=== PATIENT | female | born 1945 | race Caucasian/White ===

== ENCOUNTER 2016-05-29 09:58 | Outpatient (CLI) | payer MEDICARE, BC ==
[2016-05-30] MEDS ORDERED: IOPAMIDOL-300 50 ML VIAL PO ONE (10:58)
== END 2016-05-29 09:59 | disposition home or self-care (01) ==
DX: R10.9 Unspecified abdominal pain (principal); Z85.42 Personal history of malignant neoplasm of other parts of uterus

== ENCOUNTER 2017-05-06 10:55 | Outpatient (CLI) | payer MEDICARE, BC ==
--- NOTE | 2017-05-07 11:44 | XRAY Report ---
DATE OF SERVICE: 05/06/2017 LEFT KNEE: 05/06/2017 COMPARISON: Left knee 08/26/2013. INDICATION: Osteoarthritis., TECHNIQUE: Three views of the left knee. FINDINGS: There are mild to moderate tricompartmental degenerative changes, slightly progressed compared to the prior exam. Normal alignment. No acute findings. There is a superior patellar enthesophyte , stable finding. IMPRESSION: MILD TO MODERATE TRICOMPARTMENTAL OSTEOARTHRITIS, SLIGHTLY PROGRESSED FROM THE PRIOR EXAM. TD: 05/06/2017 15:58 [facility] SYSTEMDarlene
== END 2017-05-06 10:56 | disposition home or self-care (01) ==
LOC: DI.S 10:55
PROVIDERS: ATTEND Physician Assistant
DX: M17.12 Unilateral primary osteoarthritis, left knee (principal)

== ENCOUNTER 2017-06-11 09:22 | Outpatient (CLI) | payer MEDICARE, BC ==
--- NOTE | 2017-06-11 14:07 | XRAY Report ---
TWO VIEW CHEST: 06/11/2017 CLINICAL INDICATION: Cough, fever. FINDINGS: Frontal and lateral views of the chest are compared to previous films of 04/09/2016. The cardiac silhouette is within normal limits. The lungs remain clear. No effusion or pneumothorax is present. IMPRESSION: NORMAL CHEST UNCHANGED. TD: 06/11/2017 14:04
== END 2017-06-11 09:23 | disposition home or self-care (01) ==
LOC: DI.S 09:22
PROVIDERS: ATTEND Physician Assistant
DX: R05 Cough (principal); R50.9 Fever, unspecified
CPT/HCPCS: 71046

== ENCOUNTER 2017-07-15 08:00 | Outpatient (CLI) | payer MEDICARE, BC ==
[2017-07-15 12:31] LABS: ABNORMAL LYMPHS % (MANUAL) 0 %; BAND NEUTROPHILS % (MANUAL) 0 %
[2017-07-15 17:36] LABS: BASOPHILS % (AUTO) 0.4 %; EOSINOPHILS % (AUTO) 4.4 %; HGB - HEMOGLOBIN 13.1 g/dL (12.0-16.0); LYMPHOCYTES % (AUTO) 32.4 %; MEAN CORPUSCULAR HEMOGLOBIN 28.2 pg (27.0-31.0); MEAN CORPUSCULAR HGB CONC 32.9 g/dL (32.0-36.0); MEAN CORPUSCULAR VOLUME 85.7 fL (81.0-99.0); MONOCYTES % (AUTO) 4.5 %; NEUTROPHILS % (AUTO) 58.3 %; PLT - PLATELET COUNT 268 10^3/uL (130-450); RED BLOOD COUNT 4.63 10^6/uL (4.20-5.40); WHITE BLOOD COUNT 5.9 x10^3/uL (4.8-10.8)
[2017-07-15 19:07] LABS: BASOPHILS # (MANUAL) 0.1 10^3/uL (0-0.1); BASOPHILS % (MANUAL) 1 %; EOSINOPHILS # (MANUAL) 0.6 10^3/uL (0-0.7); LYMPHOCYTES # (MANUAL) 1.8 10^3/uL (1.5-3.5); LYMPHOCYTES % (MANUAL) 31 %; MONOCYTES # (MANUAL) 0.3 10^3/uL (0.0-1.0); NEUTROPHILS # (MANUAL) 3.1 10^3/uL (1.5-6.6); NEUTROPHILS % (MANUAL) 52 %; PLATELET ESTIMATE, MANUAL NORMAL (130-450,000) (NORMAL); PLATELET MORPHOLOGY NORMAL APPEARANCE (NORMAL); RBC MORPHOLOGY (MULTIPLE) NORMAL APPEARANCE (NORMAL)
== END 2017-07-15 08:01 ==
LOC: LAB.F 08:00
PROVIDERS: ATTEND Physician Assistant
DX: D72.820 Lymphocytosis (symptomatic) (principal); R53.83 Other fatigue
CPT/HCPCS: 36415; 85025

== ENCOUNTER 2017-10-17 08:56 | Outpatient (CLI) | payer MEDICARE, BC ==
[~2017-10-17 08:56] MED LIST: IOPAMIDOL-300 100 ML VIAL ONE; IOPAMIDOL-300 50 ML VIAL ONE
[2017-10-17] MEDS ORDERED: IOPAMIDOL-300 50 ML VIAL PO ONE (10:53)
[2017-10-17] MEDS ORDERED: IOPAMIDOL-300 100 ML VIAL IVP ONE (10:53)
--- NOTE | 2017-10-19 08:40 | CT Report ---
Procedure Date: 10/17/2017 Accession Number: [id number] / [id number] Procedure: CT - Abdomen/Pelvis W/ CPT Code: FULL RESULT: EXAM: CT ABDOMEN AND PELVIS EXAM DATE: 10/17/2017 10:51 AM. CLINICAL HISTORY: WT LOSS, ABDOMINAL PAIN, HX ENDOMETRIAL CANCER. COMPARISONS: Abdominal pelvic CT 05/29/2016. TECHNIQUE: Routine helical CT imaging was performed through the abdomen and pelvis. IV contrast: 100 cc Isovue-300. Enteric contrast: Positive oral contrast. Reconstructions: Coronal and sagittal. In accordance with CT protocol optimization, one or more of the following dose reduction techniques were utilized for this exam: automated exposure control, adjustment of mA and/or KV based on patient size, or use of iterative reconstructive technique. FINDINGS: Lung Bases: Mild right lower lobe bronchial wall thickening. Small hiatal hernia. Liver: Diffuse fatty liver infiltration. No focal mass evident. Patent portal vein. Gallbladder/Bile Ducts: Gallstones. Partially contracted gallbladder. Spleen: Normal. Pancreas: Normal. Adrenal Glands: Normal. Kidneys: Normal. No masses or hydronephrosis. Peritoneal Cavity/Bowel: Diverticulosis. No focal inflammation or dilated bowel. The appendix is well visualized and normal. No adenopathy or omental implants evident. Pelvic Organs: Prior hysterectomy. Bladder is partially distended and grossly unremarkable. No adnexal mass evident. Vasculature: No aneurysms or other significant abnormality. Bones: Degenerative changes within the thoracolumbar spine. Convex left thoracal lumbar scoliosis. Other: No ascites. IMPRESSION: 1. Gallstones. No CT evidence for cholecystitis. Consider ultrasound if clinically warranted. 2. Fatty liver. 3. Small hiatal hernia. 4. Diverticulosis. No diverticulitis. 5. Prior hysterectomy. [facility]IA
== END 2017-10-17 08:57 | disposition home or self-care (01) ==
LOC: DI 08:56
PROVIDERS: ATTEND Physician Assistant
DX: K80.20 Calculus of gallbladder without cholecystitis without obstruction (principal); K76.0 Fatty (change of) liver, not elsewhere classified; K57.30 Diverticulosis of large intestine without perforation or abscess without bleeding; Z90.710 Acquired absence of both cervix and uterus
CPT/HCPCS: 74177; Q9967

== ENCOUNTER 2017-12-08 13:31 | Emergency (ER) | payer MEDICARE, BC ==
[2017-12-08 15:22] LABS: BASOPHILS # (AUTO) 0.1 10^3/uL (0.0-0.1); BASOPHILS % (AUTO) 1.7 %; EOSINOPHILS # (AUTO) 0.3 10^3/uL (0.0-0.7); EOSINOPHILS % (AUTO) 3.3 %; HGB - HEMOGLOBIN 12.6 g/dL (12.0-16.0); LYMPHOCYTES # (AUTO) 3.4 10^3/uL (1.5-3.5); LYMPHOCYTES % (AUTO) 42.2 %; MEAN CORPUSCULAR HEMOGLOBIN 28.6 pg (27.0-31.0); MEAN CORPUSCULAR HGB CONC 33.4 g/dL (32.0-36.0); MEAN CORPUSCULAR VOLUME 85.6 fL (81.0-99.0); MEAN PLATELET VOLUME 7.3 fL (7.9-10.8); MONOCYTES # (AUTO) 0.4 10^3/uL (0.0-1.0); MONOCYTES % (AUTO) 4.8 %; NEUTROPHILS # (AUTO) 3.9 10^3/uL (1.5-6.6); PLT - PLATELET COUNT 658 10^3/uL (130-450); RED BLOOD COUNT 4.41 10^6/uL (4.20-5.40); RED CELL DISTRIBUTION WIDTH 14.4 % (12.0-15.0); WHITE BLOOD COUNT 8.1 x10^3/uL (4.8-10.8)
[2017-12-08 15:35] LABS: ALBUMIN 3.9 g/dL (3.2-5.5); BILIRUBIN,TOTAL 0.6 mg/dL (0.2-1.0); CREATININE 0.9 mg/dL (0.4-1.0); TOTAL PROTEIN 7.7 g/dL (6.7-8.2)
--- NOTE | 2017-12-08 15:45 | ED Physician Documentation ---
PD HPI ABD PAIN - Stated complaint Stated Complaint: POST OP COMPLICATION - Chief complaint Chief Complaint: Abd Pain - History obtained from History obtained from: Patient - History of Present Illness Timing - onset: How many weeks ago (has had firm stools and less output since knee surgery 3 weeks ago. Taking pain meds regularly. Having more abd cramping today.) Timing - duration: Weeks Timing - details: Gradual onset, Waxing and waning Quality: Cramping, Aching, Fullness/distended Location: All over / everywhere Worsened by: Eating Associated symptoms: Constipation. No: Fever, Vomiting, Diarrhea, Melena Recently seen: Surgery (knee replacement 3 weeks ago) Review of Systems Constitutional: denies: Fever, Chills GI: reports: Abdominal Pain, Constipation. 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 HEENT: Cataracts, Tonsil/Adenoidectomy, Other - Present Medications Home Medications: Ambulatory Orders Medication Instructions Recorded Confirmed Esomeprazole Magnesium [Nexium] 40 mg PO DAILY 05/05/13 11/23/15 Cetirizine [ZyrTEC] 10 mg PO DAILY 10/03/15 11/23/15 Fluticasone/Salmeterol 250/50 1 puffs INH BID 10/03/15 11/23/15 [Advair 250 Mcg/50 Mcg] Cyclobenzaprine [Flexeril] 10 mg PO TID PRN 12/08/17 12/08/17 HYDROmorphone [Dilaudid] 2 mg PO Q4-6H 12/08/17 12/08/17 Naproxen 375 mg PO BID #20 tablet 12/08/17 Polyethylene Glycol 3350 [Miralax] 17 gm PO Q3H PRN #238 g 12/08/17 - Allergies Allergies/Adverse Reactions: Allergies Allergy/AdvReac Type Severity Reaction Status Date / Time No Known Drug Allergies Allergy Verified 12/08/17 13:46 - Social History Does the pt smoke?: No Smoking Status: Never smoker PD ED PE NORMAL - Vitals Vital signs reviewed: Yes - General General: Alert and oriented X 3, Well developed/nourished - HEENT HEENT: Pharynx benign - Neck Neck: Supple, no meningeal sign, No adenopathy - Cardiac Cardiac: RRR, No murmur - Respiratory Respiratory: Clear bilaterally - Abdomen Abdomen: Soft, Non distended, No organomegaly, Other (tender mid to lower abd without peritoneal signs. ). No: Normal bowel sounds (decreased) - Female Female : Deferred - Rectal Rectal: Other (no stool at vault. Guiac negative. ) - Back Back: No CVA TTP - Derm Derm: Normal color, Warm and dry - Extremities Extremities: Normal ROM s pain, No edema, Other (left knee with healing surgical scar, without signs of infection. ) - Neuro Neuro: Alert and oriented X 3, No motor deficit, Normal speech Results - Vitals Vitals: Oxygen O2 Source Room air - Labs Labs: Laboratory Tests 12/08/17 12/08/17 15:10 15:10 WBC 8.1 RBC 4.41 Hgb 12.6 Hct 37.8 MCV 85.6 MCH 28.6 MCHC 33.4 RDW 14.4 Plt Count 658 H MPV 7.3 L Neut # (Auto) 3.9 Lymph # (Auto) 3.4 [place] # (Auto) 0.4 Eos # (Auto) 0.3 Baso # (Auto) 0.1 Absolute Nucleated RBC 0.00 Nucleated RBC % 0.0 Sodium 139 Potassium 4.0 Chloride 106 Carbon Dioxide 23 Anion Gap 10.0 BUN 10 Creatinine 0.9 Estimated GFR (MDRD) 62 L Glucose 113 H Calcium 10.0 Total Bilirubin 0.6 AST 22 ALT 10 Alkaline Phosphatase 70 Total Protein 7.7 Albumin 3.9 Globulin 3.8 Albumin/Globulin Ratio 1.0 Lipase 45 - Rads (name of study) abd pelvic CT Radiology: Prelim report reviewed (no acute process. No obstruction. ) PD MEDICAL DECISION MAKING - ED course Complexity details: reviewed results (no acute process on CT abdomen. Presume symptoms are constipation. Only small stool with enema. Rectal without impaction. To continue treatments at home for the constipation. ), considered differential, d/w patient - Sepsis Event Vital Signs: Oxygen O2 Source Room air Departure - Departure Disposition: 01 Home, Self Care Clinical Impression: Abdominal pain Qualifiers: Abdominal location: lower abdomen, unspecified Qualified Code(s): R10.30 - Lower abdominal pain, unspecified Constipation Qualifiers: Constipation type: drug induced constipation Qualified Code(s): K59.03 - Drug induced constipation Condition: Stable Record reviewed to determine appropriate education?: Yes Instructions: ED Constipation Follow-Up: Carmen Wilson PA [Primary Care Provider] - Prescriptions: Naproxen 375 mg PO BID #20 tablet Polyethylene Glycol 3350 [Miralax] 17 gm PO Q3H PRN #238 g PRN Reason: Constipation Comments: Try to decrease the amount of pain medicine use. Add naproxen twice daily to try to help with the knee pain. Drink lots of fluids. Use the MiraLAX tomorrow every 2-3 hours until you are going more regularly. Then continue it at 2-3 times a day for the next several days. Continue stool softener such as senna or docusate. Recheck if not improving over the next day or 2. Your CT scan and blood tests are good without any signs of obstruction, diverticulitis, other significant causes. Discharge Date/Time: 12/08/17 20:57
[2017-12-08] MEDS ORDERED: MAGNESIUM CITRATE 296 ML BOTTLE PO STA (16:02)
[2017-12-08] MEDS ORDERED: SODIUM CHLORIDE 0.9% 1,000 ML IV ONE (16:02)
[2017-12-08] MEDS ORDERED: KETOROLAC 60 MG/2 ML VIAL IVP STA (16:02)
[2017-12-08] MEDS ORDERED: ONDANSETRON 4 MG/2 ML VIAL IVP STA (16:02)
[2017-12-08] MEDS ORDERED: MINERAL OIL ENEMA 133 ML BOTTLE RC STA (16:02)
[2017-12-08] MEDS ORDERED: HYDROmorphone 1 MG/ML CARPUJECT IVP STA ×2 (16:26→19:28)
--- NOTE | 2017-12-08 17:34 | CT Report ---
Procedure Date: 12/08/2017 Accession Number: [id number] / [id number] Procedure: CT - Abdomen/Pelvis W/O CPT Code: FULL RESULT: EXAM: CT ABDOMEN AND PELVIS EXAM DATE: 12/08/2017 05:19 PM. CLINICAL HISTORY: Abdominal pain and constipation; concern for obstruction. COMPARISONS: Abdomen/pelvis 05/29/2016 12:02 AM. TECHNIQUE: Routine helical CT imaging was performed through the abdomen and pelvis. IV contrast: No. Enteric contrast: No. Reconstructions: Coronal and sagittal. In accordance with CT protocol optimization, one or more of the following dose reduction techniques were utilized for this exam: automated exposure control, adjustment of mA and/or KV based on patient size, or use of iterative reconstructive technique. FINDINGS: Lung bases: Multiple new small bilateral pulmonary nodules in the bilateral lower lobes, largest in the right lower lobe measures 5 mm and the largest in the left lower lobe is seen laterally measures 1 cm. Small hiatal hernia. Liver: Unremarkable. Gallbladder: Moderate gallstone. Bile ducts: Unremarkable. Pancreas: Unremarkable. Spleen: Unremarkable Adrenals: Unremarkable. Kidneys: Unremarkable. No renal calculi. No hydroureter or ureteral calculi. Bowel: Mild sigmoid diverticulosis. A few descending colon diverticula. No evidence for acute diverticulitis. No evidence for bowel obstruction. The appendix is not definitely seen. No significant signs of acute appendicitis. No free fluid or free air. Pelvis: The bladder and remaining pelvic organs are unremarkable. Vascular structures: No acute findings. Bones: No acute bone findings. IMPRESSION: 1. Mild sigmoid diverticulosis. A few descending colon diverticula. No evidence for acute diverticulitis. No evidence for bowel obstruction. 2. Multiple new small bilateral pulmonary nodules in the bilateral lower lobes, largest in the right upper lobe measures 5 mm and the largest in the left lower lobe is seen bilaterally measures 1 cm. These could be infectious/inflammatory or aspiration. Three-month follow-up chest CT is recommended to reevaluate. 3. Small hiatal hernia. 4. Cholelithiasis. [facility]
[2017-12-08] MEDS ORDERED: DOCUSATE SODIUM 100 MG CAPSULE PO STA (19:28)
[2017-12-08 20:48] VITALS: BP 99/74
== END 2017-12-08 20:57 | disposition home or self-care (01) ==
LOC: ED 13:31
DX: R10.30 Lower abdominal pain, unspecified (principal); K59.03 Drug induced constipation; Z96.659 Presence of unspecified artificial knee joint
CPT/HCPCS: 36415; 74176; 80053; 83690; 85025; 96361; 96374; 96375; 96376; 99283; 99284; A9270; J1170

== ENCOUNTER 2018-02-16 13:51 | Outpatient (CLI) | payer MEDICARE, BC ==
--- NOTE | 2018-02-16 14:25 | XRAY Report ---
Reason: INCREASED DYSPNEA,H/O TOBACCO USE Procedure Date: 02/16/2018 Accession Number: [id number] / [id number] Procedure: XR - Chest 2 View X-Ray CPT Code: 16259 FULL RESULT: EXAM: CHEST RADIOGRAPHY EXAM DATE: 02/16/2018 01:58 PM. CLINICAL HISTORY: INCREASED DYSPNEA,H/O TOBACCO USE. COMPARISON: 06/11/2017. TECHNIQUE: 2 views. FINDINGS: Lungs/Pleura: No focal opacities evident. No pleural effusion. No pneumothorax. Normal volumes. Mediastinum: Heart and mediastinal contours are unremarkable. Other: Degenerative change in the spine. S-shaped thoracolumbar scoliosis. IMPRESSION: Negative 2-view chest radiography for acute findings or significant change since the prior study.. [facility]
== END 2018-02-16 13:52 | disposition home or self-care (01) ==
LOC: DI 13:51
PROVIDERS: ATTEND Registered Nurse
DX: R06.00 Dyspnea, unspecified (principal); Z87.891 Personal history of nicotine dependence
CPT/HCPCS: 71046

== ENCOUNTER 2018-05-25 09:45 | Outpatient (CLI) | payer MEDICARE, BC ==
[2018-05-25] MEDS ORDERED: IOVERSOL 320 50 ML VIAL ONE (10:05)
[2018-05-25] MEDS ORDERED: IOVERSOL 320 100 ML VIAL IVP ONE ×2 (10:05→11:43)
[2018-05-25] MEDS ORDERED: IOVERSOL 320 50 ML VIAL PO ONE (11:43)
--- NOTE | 2018-05-25 15:20 | CT Report ---
Reason: UNSPECIFIED ABDOMINAL PAIN Procedure Date: 05/25/2018 Accession Number: [id number] / [id number] Procedure: CT - Abdomen/Pelvis W/ CPT Code: FULL RESULT: EXAM: CT ABDOMEN AND PELVIS EXAM DATE: 05/25/2018 11:23 AM. CLINICAL HISTORY: Unspecified abdominal pain. COMPARISONS: Abdomen, pelvis without 12/08/2017 5:07 PM. TECHNIQUE: Routine helical CT imaging was performed through the abdomen and pelvis. IV contrast: Optiray-320 90 mL. Enteric contrast: Yes. Reconstructions: Coronal and sagittal. In accordance with CT protocol optimization, one or more of the following dose reduction techniques were utilized for this exam: automated exposure control, adjustment of mA and/or KV based on patient size, or use of iterative reconstructive technique. FINDINGS: Lung Bases: 5 mm ground-glass opacity in the right middle lobe, image 6 series 3. Small sliding hiatal hernia. Liver: Normal. No masses. Gallbladder/Bile Ducts: Cholelithiasis. Spleen: Normal. Pancreas: Normal. Adrenal Glands: Normal. Kidneys: Normal. No masses or hydronephrosis. Peritoneal Cavity/Bowel: There is prominent thickening in the prepyloric gastric wall, nonspecific. Redundant colon with intrapelvic cecum and scant diverticulosis without diverticulitis. No free fluid, free air or adenopathy. No masses or acute inflammatory process. The appendix is well visualized and normal. Pelvic Organs: Surgical clips are seen along both iliac chains. Status post hysterectomy. Vasculature: No aneurysms or other significant abnormality. Bones: No significant abnormality. Other: None. IMPRESSION: Prominent thickening of the prepyloric stomach should be correlated to patient history to guide whether endoscopic evaluation is warranted. [facility]
== END 2018-05-25 09:46 | disposition home or self-care (01) ==
LOC: DI 09:45
PROVIDERS: ATTEND Physician Assistant
DX: R10.9 Unspecified abdominal pain (principal)
CPT/HCPCS: 74177; Q9967

== ENCOUNTER 2018-07-19 09:02 | Day surgery (SDC) | payer MEDICARE, BC ==
[2018-07-19] MEDS ORDERED: LACTATED RINGERS 1,000 ML IV ONE (09:26)
[2018-07-19] MEDS ORDERED: LIDO GARGLE 30 ML BOTTLE ONE (09:51)
[2018-07-19] MEDS ORDERED: LIDO GARGLE 30 ML BOTTLE PO ONE (10:40)
[2018-07-19] MEDS ORDERED: BENZOCAINE/TETRACAINE/BUTAMBEN 20 GM MM ONE (10:40)
[2018-07-19] MEDS ORDERED: MIDAZOLAM 2 MG/2 ML VIAL IVP ONE (10:52)
[2018-07-19] MEDS ORDERED: fentaNYL 100 MCG/2 ML VIAL IVP ONE (10:52)
[2018-07-19 11:10] VITALS: BP 108/68
== END 2018-07-19 09:03 | disposition home or self-care (01) ==
LOC: SDS 09:02
PROVIDERS: ATTEND Surgery
PROC: 0DB68ZX Excision of Stomach, Via Natural or Artificial Opening Endoscopic, Diagnostic (ICD-10-PCS; 2018-07-19)
PROC: 0DB38ZX Excision of Lower Esophagus, Via Natural or Artificial Opening Endoscopic, Diagnostic (ICD-10-PCS; principal; 2018-07-19 10:15)
DX: K21.0 Gastro-esophageal reflux disease with esophagitis (principal); R68.81 Early satiety; J45.909 Unspecified asthma, uncomplicated; Z79.52 Long term (current) use of systemic steroids; Z96.653 Presence of artificial knee joint, bilateral; Z87.891 Personal history of nicotine dependence
CPT/HCPCS: 43239; 87081; A9270; J7120

== ENCOUNTER 2018-12-30 09:51 | Outpatient (CLI) | payer MEDICARE, BC ==
--- NOTE | 2018-12-31 08:17 | XRAY Report ---
Reason: PAIN OF RIGHT SHOULDER JOINT, M25.511 Procedure Date: 12/30/2018 Accession Number: [id number] / [id number] Procedure: XRS - Shoulder 3 View RT CPT Code: FULL RESULT: EXAM: RIGHT SHOULDER RADIOGRAPHY EXAM DATE: 12/30/2018 02:27 PM. CLINICAL HISTORY: Pain of right shoulder joint, M25. 511. COMPARISON: CHEST 2 VIEW 12/30/2018 2:27 PM. TECHNIQUE: 3 views. FINDINGS: Bones: Minimal osteophytic spurring at the AC articulation space and minimal subchondral cystic changes of the humeral head.. No fracture or bone lesion. Joints: The glenohumeral and acromioclavicular joint spaces are normal. Soft tissues: The visualized hemithorax is unremarkable. No soft tissue swelling. IMPRESSION: Minimal degenerative changes at the right shoulder. RADIA
--- NOTE | 2018-12-31 09:52 | XRAY Report ---
Reason: COUGH,PAIN OF RIGHT SHOULDER JOINT Procedure Date: 12/30/2018 Accession Number: [id number] / [id number] Procedure: XRS - Chest 2 View X-Ray CPT Code: 40761 FULL RESULT: EXAM: CHEST RADIOGRAPHY EXAM DATE: 12/30/2018 02:27 PM. CLINICAL HISTORY: Cough, pain OF RIGHT SHOULDER JOINT. COMPARISON: CHEST 2 VIEW 02/16/2018 1:58 PM. TECHNIQUE: 2 views. FINDINGS: Lungs/Pleura: No focal opacities evident. No pleural effusion. No pneumothorax. Normal volumes. Mediastinum: Heart and mediastinal contours are unremarkable. Other: None. IMPRESSION: Normal 2-view chest radiography. RAD[facility]
== END 2018-12-30 09:52 | disposition home or self-care (01) ==
LOC: DI.S 09:51
PROVIDERS: ATTEND Physician Assistant
DX: R05 Cough (principal); M19.011 Primary osteoarthritis, right shoulder
CPT/HCPCS: 71046

== ENCOUNTER 2019-11-18 10:20 | Outpatient (CLI) | payer MEDICARE, BC ==
--- NOTE | 2019-11-18 17:44 | MRI Report ---
PROCEDURE: Brain W/O INDICATIONS: HEADACHE, LT FACIAL PAIN TECHNIQUE: Noncontrast axial T1 spin echo, axial T2 fast spin echo, sagittal and axial FLAIR, coronal T2 fast sp in echo, axial gradient echo, axial diffusion and ADC through the brain. COMPARISON: None. FINDINGS: Image quality: Limited by beam hardening artifact possibly related to metallic ear piercings. CSF Spaces: Basal cisterns are patent. No extra-axial fluid collections. Ventricles are normal in size and shape. Brain: No intracranial masses or hemorrhage. [place]/white matter interface is normal. There is mild diffuse cerebral volume loss. There are mild periventricular and subcortical white matter chronic genoveva rovascular ischemic changes. Brainstem appears normal. Diffusion-weighted images demonstrate no acut e ischemic insult. No chronic ischemic insults. Normal intravascular flow voids are present. Skull and face: Calvarium has normal marrow signal. Orbits appear normal. Sinuses: Sinuses and mastoids are clear. IMPRESSION: 1. No acute intracranial disease process. 2. No abnormal intracranial mass or mass effect. 3. No areas of acute or chronic infarction. 4. Mild, diffuse cerebral volume loss. 5. Mild periventricular and subcortical white matter chronic microvascular ischemic change. Reviewed by: Saida Bravo MD, PhD on 11/18/2019 5:42 PM PDT Approved by: Saida Bravo MD, PhD on 11/18/2019 5:42 PM PDT Station ID: [id number]
== END 2019-11-18 10:21 | disposition home or self-care (01) ==
LOC: DI 10:20
PROVIDERS: ATTEND Registered Nurse
DX: R51 Headache (principal); R41.3 Other amnesia
CPT/HCPCS: 70551

== ENCOUNTER 2020-02-17 19:34 | Outpatient (CLI) | payer MEDICARE, BC ==
--- NOTE | 2020-02-17 21:22 | Ultrasound Report ---
PROCEDURE: Duplex Lwr Ext Arterial LT INDICATIONS: PAIN IN LT LOWER LIMB TECHNIQUE: Color and pulse Doppler interrogation was performed of the left lower extremity arterial system, with image documentation. COMPARISON: None FINDINGS: Common femoral artery: Measuring 4.2 cm/sec, with biphasic flow. Deep femoral artery: 62.6 cm/sec, with triphasic flow. Proximal superficial femoral artery: 63 cm/sec, with biphasic flow. Mid superficial femoral artery: 68 cm/sec, with triphasic flow. Distal superficial femoral artery: 60.4 cm/sec, with biphasic flow. Popliteal artery: Occluded Posterior tibial artery: 7.5 cm/sec, with monophasic flow. Anterior tibial artery/dorsalis pedis: 7.8/6.4 cm/sec, with monophasic flow. [place]-scale imaging description: The popliteal artery is occluded. No stenotic disease or occlusive d isease above the popliteal. Distal monophasic runoff. IMPRESSION: Popliteal artery occlusion. Comment: Patient's states that symptoms developed last Thursday. This was a routine study. Michaelle vieira is being offered the possibility of being seen in the emergency department. Above discussed with Dr. Soliman at the time of dictation and 02/17/2020 at 2121 hours. Reviewed by: Simba Burt MD on 02/17/2020 9:21 PM PDT Approved by: Simba Burt MD on 02/17/2020 9:21 PM PDT Station ID: [id number]
== END 2020-02-17 19:35 | disposition home or self-care (01) ==
LOC: DI 19:34
PROVIDERS: ATTEND Nurse Practitioner Family
DX: M79.605 Pain in left leg (principal); I77.9 Disorder of arteries and arterioles, unspecified

== ENCOUNTER 2020-02-21 10:25 | Outpatient (CLI) | payer MEDICARE, BC | END 2020-02-21 10:26 | disposition home or self-care (01) | LOC: DI 10:25 | PROVIDERS: ATTEND Registered Nurse | DX: R00.1 Bradycardia, unspecified (principal); I51.7 Cardiomegaly | CPT/HCPCS: 93306 ==

== ENCOUNTER 2021-04-25 08:00 | Outpatient (CLI) | payer MEDICARE, BC ==
[2021-04-25 12:37] LABS: BASOPHILS # (AUTO) 0.1 10^3/uL (0.0-0.1); BASOPHILS % (AUTO) 0.6 %; EOSINOPHILS # (AUTO) 0.2 10^3/uL (0.0-0.7); EOSINOPHILS % (AUTO) 2.9 %; HCT - HEMATOCRIT 39.6 % (37.0-47.0); HGB - HEMOGLOBIN 12.9 g/dL (12.0-16.0); LYMPHOCYTES # (AUTO) 3.6 10^3/uL (1.5-3.5); LYMPHOCYTES % (AUTO) 44.9 %; MEAN CORPUSCULAR HEMOGLOBIN 29.6 pg (27.0-31.0); MEAN CORPUSCULAR HGB CONC 32.6 g/dL (32.0-36.0); MEAN CORPUSCULAR VOLUME 90.8 fL (81.0-99.0); MEAN PLATELET VOLUME 10.3 fL (7.9-10.8); MONOCYTES # (AUTO) 0.4 10^3/uL (0.0-1.0); MONOCYTES % (AUTO) 5.1 %; NEUTROPHILS # (AUTO) 3.7 10^3/uL (1.5-6.6); NEUTROPHILS % (AUTO) 46.4 %; PLT - PLATELET COUNT 244 10^3/uL (130-450); RED BLOOD COUNT 4.36 10^6/uL (4.20-5.40)
[2021-04-25 12:48] LABS: CALCIUM 9.6 mg/dL (8.5-10.3); CREATININE 1.1 mg/dL (0.4-1.0); POTASSIUM 4.3 mmol/L (3.5-5.0)
[2021-04-25 13:07] LABS: THYROID STIMULATING HORMONE 1.6 uIU/mL (0.34-5.60)
[2021-04-25 13:09] LABS: FREE T4 (FREE THYROXINE) 0.89 ng/dL (0.58-1.64)
== END 2021-04-25 23:59 ==
LOC: LAB 08:00
PROVIDERS: ATTEND Internal Medicine Cardiovascular Disease
DX: I48.91 Unspecified atrial fibrillation (principal)
CPT/HCPCS: 36415; 80048; 84439; 84443; 85025

== ENCOUNTER 2021-08-11 08:00 | Outpatient (CLI) | payer MEDICARE, BC | END 2021-08-11 23:59 | disposition home or self-care (01) | LOC: LAB 08:00 | PROVIDERS: ATTEND Emergency Medicine | DX: T81.30XA Disruption of wound, unspecified, initial encounter (principal) | CPT/HCPCS: 87070; 87077; 87181; 87205 ==

== ENCOUNTER 2022-07-08 11:49 | Emergency (ER) | payer MEDICARE, BC ==
[2022-07-08 12:35] LABS: BILIRUBIN,URINE NEGATIVE (NEGATIVE); GLUCOSE, URINE (UA) NEGATIVE (NEGATIVE); KETONES,URINE (UA) NEGATIVE (NEGATIVE); LEUKOCYTE ESTERASE, URINE NEGATIVE (NEGATIVE); NITRITE,URINE NEGATIVE (NEGATIVE); OCCULT BLOOD,URINE TRACE-INTA (NEGATIVE); PH,URINE 5.5 PH (5.0-7.5); PROTEIN,URINE TRACE mg/dL (NEGATIVE); UROBILINOGEN,URINE 0.2 (NORMAL) E.U./dL (NORMAL)
[2022-07-08 12:36] LABS: CLARITY,URINE CLEAR (CLEAR)
[2022-07-08 12:54] LABS: BASOPHILS # (AUTO) 0.1 10^3/uL (0.0-0.1); BASOPHILS % (AUTO) 0.9 %; EOSINOPHILS # (AUTO) 0.1 10^3/uL (0.0-0.7); EOSINOPHILS % (AUTO) 1.1 %; HCT - HEMATOCRIT 45.9 % (37.0-47.0); HGB - HEMOGLOBIN 15.1 g/dL (12.0-16.0); LYMPHOCYTES # (AUTO) 3.5 10^3/uL (1.5-3.5); LYMPHOCYTES % (AUTO) 38.1 %; MEAN CORPUSCULAR HEMOGLOBIN 29.6 pg (27.0-31.0); MEAN CORPUSCULAR HGB CONC 32.9 g/dL (32.0-36.0); MEAN PLATELET VOLUME 10.1 fL (7.9-10.8); MONOCYTES # (AUTO) 0.4 10^3/uL (0.0-1.0); MONOCYTES % (AUTO) 3.9 %; NEUTROPHILS # (AUTO) 5.1 10^3/uL (1.5-6.6); NEUTROPHILS % (AUTO) 55.9 %; PLT - PLATELET COUNT 289 10^3/uL (130-450); RED CELL DISTRIBUTION WIDTH 13.5 % (12.0-15.0); WHITE BLOOD COUNT 9.2 x10^3/uL (4.8-10.8)
[2022-07-08 13:09] LABS: ALBUMIN 3.8 g/dL (3.2-5.5); ALBUMIN/GLOBULIN RATIO 1.1 (1.0-2.2); BILIRUBIN,TOTAL 1.2 mg/dL (0.2-1.0); CALCIUM 9.7 mg/dL (8.5-10.3); CREATININE 1.2 mg/dL (0.4-1.0); TOTAL PROTEIN 7.3 g/dL (6.7-8.2)
--- OUTSIDE RECORDS SUMMARY | 2022-07-08 13:48 | EXTERNAL MEDICAL SUMMARY RPT | Continuity of Care Document ---
:1945 Author Organization [facility] Address [address] [place] [address] Phone Care Team Providers Name Role Phone Judah Patient Registrar, Mamadou Unavailable Unavailab le Allergies No information. Encounters No information. Functional Status No information. Immunizations No information. Medications date description facility 2022-07-08 00:00 apixaban [facility] 2022-07-08 00:00 cephalexin [facility] 2022-07-08 00:00 amitriptyline [facility] 2022-07-08 00:00 cephalexin [facility] 2022-07-08 00:00 amitriptyline [facility] 2022-07-08 00:00 apixaban [facility] 2022-07-08 00:00 apixaban [facility] 2022-07-08 00:00 omeprazole [facility] 2022-07-08 00:00 cephalexin [facility] 2022-07-08 00:00 cephalexin [facility] 2022-07-08 00:00 diltiazem hcl [facility] 2022-07-08 00:00 diltiazem hcl [facility] 2022-07-08 00:00 omeprazole [facility] 2022-07-08 00:00 amitriptyline [facility] 2022-07-08 00:00 omeprazole [facility] 2022-07-08 00:00 omeprazole [facility] 2022-07-08 00:00 diltiazem hcl [facility] 2022-07-08 00:00 diltiazem hcl [facility] 2022-07-08 00:00 apixaban [facility] 2022-07-08 00:00 amitriptyline [facility] Problems No information. Procedures No information. Results/Labs No information. Social History No information. Vital Signs No information.
[2022-07-08 15:09] VITALS: BP 132/95
[2022-07-08] MEDS ORDERED: iohexoL-300 100 ML VIAL ONE (16:21)
[2022-07-08] MEDS ORDERED: iohexoL-300 100 ML VIAL IVP ONE (17:15)
--- NOTE | 2022-07-08 17:19 | CT Report ---
PROCEDURE: ABDOMEN/PELVIS W INDICATIONS: low abdominal pain CONTRAST: 100ml Omnipaque 300 TECHNIQUE: After the administration of intravenous contrast, 5 mm thick sections acquired from the diaphragms to the symphysis. 5 mm thick coronal and sagittal reformats were acquired. For radiation dose reducti on, the following was used: automated exposure control, adjustment of mA and/or kV according to gina ent size. COMPARISON: None. FINDINGS: Image quality: Suboptimal due to motion artifact. ABDOMEN: Lung bases: Lung bases are clear. Heart size is normal. Moderate hiatal hernia. Solid organs: Liver and spleen are normal in size and enhancement. Gallbladder contains stones but no evidence of acute cholecystitis. Biliary system is non dilated. Pancreas enhances normally. No adrenal nodules. Kidneys demonstrate normal size and enhancement, without hydronephrosis. Peritoneum and bowel: Bowel loops demonstrate normal wall thickness and caliber. No free fluid or a ir. Colonic diverticulosis without evidence of diverticulitis. Appendix not visualized but no right lower quadrant fat straining to suggest inflammation. Nodes and vessels: No retroperitoneal or mesenteric adenopathy by size criteria. Aorta and inferior vena cava are normal in size. Miscellaneous: No ventral hernias. PELVIS: Genitourinary: Bladder wall thickness is normal. Miscellaneous: No inguinal hernias or adenopathy. Bones: No suspicious bony lesions. No vertebral body compression fractures. IMPRESSION: Suboptimal evaluation due to motion artifact. No acute abnormality. Colonic diverticulosis without evidence of diverticulitis. Reviewed by: Maurizio Singh on 07/08/2022 5:18 PM PST Approved by: Maurizio Singh on 07/08/2022 5:18 PM PST Station ID: [id number]
--- NOTE | 2022-07-08 17:55 | ED Physician Documentation ---
History of Present Illness - Stated complaint Stated Complaint: ABD PX - Chief complaint Chief Complaint: Abd Pain - History obtained from History obtained from: Patient, Family - Additonal information Additional information: The patient comes to the emergency department from the walk-in clinic for chief complaint of lower abdominal pain" I am afraid to have a bowel obstruction". She states she had a bowel obstruction years ago and that she has scar tissue from surgery and that every time she gets abdominal pain she is afraid she may have a bowel obstruction again. The patient has not had any nausea or vomiting. She has been having daily bowel movements but states that she is only putting out a few hard chunks of stool. She states she has been taking a teaspoon of MiraLAX a day to try to soften her stools up. Patient states she gets waves of pain in her low abdomen on and off for the last 10 days. The pain is not constant and is not present at this moment. No other complaints at this time. 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 HEENT: Cataracts, Tonsil/Adenoidectomy, Other - Present Medications Home Medications: Ambulatory Orders Medication Instructions Recorded Confirmed Esomeprazole Magnesium [Nexium] 40 mg PO DAILY 05/05/13 07/19/18 Cetirizine [ZyrTEC] 10 mg PO DAILY 10/03/15 07/19/18 Fluticasone/Salmeterol 250/50 1 puffs INH BID 10/03/15 07/19/18 [Advair 250 Mcg/50 Mcg] Sertraline [Zoloft] 50 mg PO DAILY 07/16/18 07/19/18 Peg 3350/Na Sulf,Bicarb,Cl/KCl 500 ml PO Q8H PRN #4000 ml 07/08/22 [Golytely] - Allergies Allergies/Adverse Reactions: Allergies Allergy/AdvReac Type Severity Reaction Status Date / Time No Known Drug Allergies Allergy Verified 07/08/22 12:20 - Social History Does the pt smoke?: No Smoking Status: Never smoker Does the pt have substance abuse?: No - Immunizations Immunizations are current?: Yes PD ED PE NORMAL - Vitals Vital signs reviewed: Yes - General General: Alert and oriented X 3, No acute distress, Well developed/nourished, Other (The patient appears anxious.) - HEENT HEENT: Atraumatic, PERRL, EOMI, Moist mucous membranes - Neck Neck: Supple, no meningeal sign - Cardiac Cardiac: RRR, No murmur, Strong equal pulses - Respiratory Respiratory: No respiratory distress, Clear bilaterally - Abdomen Abdomen: Soft, Non distended, Other (Mild tenderness bilateral lower quadrants, no rebound or guarding.) - Derm Derm: Normal color, Warm and dry, No rash - Extremities Extremities: No deformity, No edema - Neuro Neuro: Alert and oriented X 3 - Psych Psych: Normal mood, Normal affect Results - Vitals Vitals: Vital Signs - 24 hr 07/08/22 07/08/22 12:14 15:08 Temperature 37.0 C 37.3 C Heart Rate 90 78 Respiratory 16 16 Rate Blood Pressure 120/75 132/95 H O2 Saturation 100 98 Oxygen O2 Source Room air - Labs Labs: Laboratory Tests 07/08/22 07/08/22 07/08/22 12:29 12:48 12:48 WBC 9.2 RBC 5.10 Hgb 15.1 Hct 45.9 MCV 90.0 MCH 29.6 MCHC 32.9 RDW 13.5 Plt Count 289 MPV 10.1 Neut # (Auto) 5.1 Lymph # (Auto) 3.5 [place] # (Auto) 0.4 Eos # (Auto) 0.1 Baso # (Auto) 0.1 Absolute Nucleated RBC 0.00 Nucleated RBC % 0.0 Sodium 139 Potassium 4.0 Chloride 104 Carbon Dioxide 25 Anion Gap 10.0 BUN 20 Creatinine 1.2 H Estimated GFR (MDRD) 44 L Glucose 117 H Calcium 9.7 Total Bilirubin 1.2 H AST 18 ALT 13 Alkaline Phosphatase 81 Total Protein 7.3 Albumin 3.8 Globulin 3.5 Albumin/Globulin Ratio 1.1 Lipase 39 Urine Color YELLOW Urine Clarity CLEAR Urine pH 5.5 Ur Specific [place] >=1.030 H Urine Protein TRACE Urine Glucose (UA) NEGATIVE Urine Ketones NEGATIVE Urine Occult Blood TRACE-INTA Urine Nitrite NEGATIVE Urine Bilirubin NEGATIVE Urine Urobilinogen 0.2 (NORMAL) Ur Leukocyte Esterase NEGATIVE Ur Microscopic Review NOT INDICATED Urine Culture Comments NOT INDICATED - Rads (name of study) CT abdomen pelvis with IV contrast Radiology: Final report received, See rad report (Somewhat limited study secondary to motion artifact; no bowel obstruction. Diverticulosis no diverticulitis.) PD Medical Decision Making - ED course Complexity details: reviewed results, re-evaluated patient, considered differential, d/w patient ED course: The patient was worked up with a CBC and an ER abdominal panel, Which were ordered and reviewed by me and unremarkable. CT scan of the abdomen and pelvis was also unremarkable. I discussed with the patient that actually, I suspect she is constipated and this is why she keeps having the waves of pain. She does not have any symptoms consistent with a bowel obstruction, though she does seem to be fixated on this. We have discussed treatment of her constipation at home with laxative and home enemas. Departure - Departure Disposition: 01 Home, Self Care Clinical Impression: Abdominal pain Qualifiers: Abdominal location: lower abdomen, unspecified Qualified Code(s): R10.30 - Lower abdominal pain, unspecified Constipation Qualifiers: Constipation type: other constipation type Qualified Code(s): K59.09 - Other constipation Condition: Stable Instructions: ED Constipation Prescriptions: Peg 3350/Na Sulf,Bicarb,Cl/KCl [Golytely] 500 ml PO Q8H PRN #4000 ml PRN Reason: Constipation Comments: Your CT scan and labs look good. There is no evidence of a bowel obstruction or any other serious condition causing your symptoms. Given that you have been having lower volume bowel movements and your stool has been hard and coming out in small chunks, you are most likely somewhat constipated. LargeLaxatives are most effective if they are taken in volumes. Please hop picker the prescription for the laxatives at [facility] in [place]. You may also hop picker an enema or two to take at home. Please make an appointment to follow-up with your primary care physician for further concerns. Discharge Date/Time: 07/08/22 18:14
== END 2022-07-08 18:14 | disposition home or self-care (01) ==
LOC: ED 11:49
DX: K59.00 Constipation, unspecified (principal)
CPT/HCPCS: 36415; 74177; 80053; 81003; 83690; 85025; 99284; Q9967; 81001; 87086

== ENCOUNTER 2022-12-23 10:40 | Emergency (ER) | payer MEDICARE, BC ==
[2022-12-23 10:56] VITALS: O2SAT 98
--- NOTE | 2022-12-23 12:27 | ED Physician Documentation ---
History of Present Illness - Stated complaint Stated Complaint: SENT BY PCP-NUMB LEG - Chief complaint Chief Complaint: Ext Problem - History obtained from History obtained from: Patient - Additonal information Additional information: 77-year-old woman presents with 2 weeks of numbness especially in the left medial calf. She has a history of DVT and is on a. There is associated back pain. Her primary was worried about DVT and she was sent here for ultrasound. 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 HEENT: Cataracts, Tonsil/Adenoidectomy, Other - Present Medications Home Medications: Ambulatory Orders Medication Instructions Recorded Confirmed Esomeprazole Magnesium [Nexium] 40 mg PO DAILY 05/05/13 07/19/18 Cetirizine [ZyrTEC] 10 mg PO DAILY 10/03/15 07/19/18 Fluticasone/Salmeterol 250/50 1 puffs INH BID 10/03/15 07/19/18 [Advair 250 Mcg/50 Mcg] Sertraline [Zoloft] 50 mg PO DAILY 07/16/18 07/19/18 Peg 3350/Na Sulf,Bicarb,Cl/KCl 500 ml PO Q8H PRN #4000 ml 07/08/22 [Golytely] - Allergies Allergies/Adverse Reactions: Allergies Allergy/AdvReac Type Severity Reaction Status Date / Time No Known Drug Allergies Allergy Verified 12/23/22 10:52 - Social History Does the pt smoke?: No Smoking Status: Never smoker Does the pt have substance abuse?: No - Immunizations Immunizations are current?: Yes PD ED PE NORMAL - Vitals Vital signs reviewed: Yes - General General: Alert and oriented X 3, No acute distress - Back Back: Other (She has numbness of the left medial calf, diminished reflexes throughout the lower extremities. There is mild lumbar spinal tenderness. Normal gait.) - Neuro Neuro: Alert and oriented X 3, Normal speech Results - Vitals Vitals: Vital Signs - 24 hr 12/23/22 10:48 Temperature 36.6 C Heart Rate 108 H Respiratory 16 Rate Blood Pressure 90/71 O2 Saturation 98 Oxygen O2 Source Room air - Rads (name of study) DVT ultrasound was negative per the RDMS Relevant Findings:: Prelim report reviewed PD Medical Decision Making - ED course ED course: 77-year-old woman with left leg numbness, the constellation of symptoms to me is more suggestive of a lumbar radiculopathy than a DVT and DVT is ruled out. Departure - Departure Disposition: 01 Home, Self Care Clinical Impression: Leg numbness Condition: Good Record reviewed to determine appropriate education?: Yes Instructions: Lumbar Radiculopathy Comments: Ultrasound of your leg was negative, there is no blood clots. Your symptoms especially associated with the back pain in the distribution of your numbness is, to me, more suggestive of a "lumbar radiculopathy" AKA a pinched nerve in your back. Follow-up with your primary, discuss nonemergent MRI of the lumbar spine to evaluate and potentially referral to a specialist depending on results. Return for new or worsening symptoms. Forms: PCP List
[2022-12-23 12:43] VITALS: BP 92/74
--- NOTE | 2022-12-23 12:52 | Ultrasound Report ---
PROCEDURE: Duplex Ext Veins Left INDICATIONS: pain TECHNIQUE: Real-time imaging, as well as color and pulse Doppler interrogation, were performed of the lower extr emity deep veins from the inguinal ligament to the popliteal fossa. Attempted visualization of the ca lf veins was performed. COMPARISON: None. FINDINGS: The deep veins are normally compressible, and free of intraluminal thrombus. Color and pu lse Doppler demonstrate normal phasic intraluminal flow. There is normal augmentation response to di stal compression maneuver. IMPRESSION: No deep venous thrombosis of the visualized lower extremity. Reviewed by: Debbie Kim MD on 12/23/2022 12:51 PM PDT Approved by: Debbie Kim MD on 12/23/2022 12:51 PM PDT Station ID: [id number]
== END 2022-12-23 12:40 | disposition home or self-care (01) ==
LOC: ED 10:40
DX: R20.0 Anesthesia of skin (principal); Z79.899 Other long term (current) drug therapy
CPT/HCPCS: 99283; 99284

== ENCOUNTER 2023-01-13 10:04 | Outpatient (CLI) | payer MEDICARE, BC ==
--- NOTE | 2023-01-13 15:00 | MRI Report ---
PROCEDURE: LUMBAR SPINE WO INDICATIONS: LUMBOSACRAL SCOLIOSIS TECHNIQUE: Noncontrast sagittal T1 spin echo and T2 fast echo, sagittal STIR, axial T1 and T2 fast spin echo thr ough the lumbar spine. In cases with scoliosis, additional coronal T2 fast spin echo may be performe d. COMPARISON: None. FINDINGS: Image quality: Excellent. Alignment and Curvature: There is leftward scoliotic curvature with apex at L3. There is trace retro listhesis of L1 on L2, L3 on L4, L4 on L5. Bone Marrow: Marrow is of normal overall signal. Minimal to mild reactive endplate changes are pres ent L3-4, minimal L4-5. Scattered Schmorl's nodes are present along the inferior endplates of L1 and L3 as well as superior endplate of L5. No acute vertebral body compression fractures. Spinal Cord: Conus medullaris terminates at the L1-2 level. Visualized cord demonstrates normal sig nal and size. Paraspinous Soft Tissues: No paravertebral masses. Discs Multilevel disc desiccation is present severe from L3-4 through L5-S1. T12-L1: No disc bulge, spinal stenosis or foraminal narrowing. L1-L2: Mild disc bulge without spinal stenosis. Mild bilateral foraminal narrowing slightly progre ssive. L2-L3: Mild left asymmetric disc bulge with mild compromise of the left lateral recess. Mild to mo derate bilateral foraminal narrowing appearing progressive compared to prior exam. Facet and ligament um flavum hypertrophy are present. Moderate spinal stenosis. L3-L4: Mild disc bulge with mild spinal stenosis, minimally progressive. Moderate to severe right a nd moderate left foraminal narrowing with facet and ligamentum flavum hypertrophy, slightly progressi ve. Epidural lipomatosis is present. L4-L5: Mild disc bulge with extruded fragment, smaller when compared to prior exam. Extruded fragme nt currently measures 9 mm x 6 mm compared to 10 mm x 8 mm. It is right posterior paracentral in loca tion without compromise the lateral recess. There is indentation of the anterior thecal sac. Severe l eft and moderate to severe right foraminal narrowing with compression of the exiting left L4 nerve ro ots, progressive. Facet and ligamentum flavum hypertrophy are present. L5-S1: Mild disc bulge with superimposed protrusion/extrusion in the left lateral/foraminal region appearing progressive compared to prior exam. There is severe left foraminal narrowing with flattenin g of the exiting L5 nerve root appearing progressive. Mild to moderate right foraminal narrowing, pro gressive. Facet and ligamentum flavum hypertrophy are present. IMPRESSION: Multilevel degenerative changes with areas of progression as above. Extrusion remains present L4-5 level smaller when compared to prior exam. Recommend correlation to pr ior surgical history as this could represent a new extrusion. Increased appearance of protrusion/extrusion left lateral/foraminal region with left foraminal compro mise as above. Reviewed by: Debbie Kim MD on 01/13/2023 2:59 PM PDT Approved by: Debbie Kim MD on 01/13/2023 2:59 PM PDT Station ID: [id number]
== END 2023-01-13 10:05 | disposition home or self-care (01) ==
LOC: DI 10:04
PROVIDERS: ATTEND Internal Medicine
DX: M41.87 Other forms of scoliosis, lumbosacral region (principal); R20.0 Anesthesia of skin; M47.26 Other spondylosis with radiculopathy, lumbar region; M47.27 Other spondylosis with radiculopathy, lumbosacral region; M51.16 Intervertebral disc disorders with radiculopathy, lumbar region; M48.061 Spinal stenosis, lumbar region without neurogenic claudication; M48.07 Spinal stenosis, lumbosacral region

== ENCOUNTER 2023-03-21 08:00 | Outpatient (CLI) | payer MEDICARE, BC ==
--- NOTE | 2023-03-21 11:04 | XRAY Report ---
PROCEDURE: Abdomen Acute INDICATIONS: ABDOMINAL PAIN TECHNIQUE: 5 views of the abdomen were acquired. COMPARISON: None. FINDINGS: Surgical changes and devices: Numerous surgical clips project over the abdomen and pelvis. Chest: Lungs are clear. Heart size is normal. No pleural effusions. No pneumoperitoneum. Bowel: No pneumoperitoneum. The bowel gas pattern is normal. Stool load within normal limits. Soft tissues: No masses; visualized solid organ contours appear normal in size. No suspicious abdom inal calcifications. Bones: No suspicious bony abnormalities. [place] left curvature of the lumbar spine centered at L2 IMPRESSION: No acute abdominal or chest pathology. Reviewed by: Neno Parra MD on 03/21/2023 10:03 AM [facility] Approved by: Neno Parra MD on 03/21/2023 10:03 AM [facility] Station ID: [id number]
== END 2023-03-21 23:59 | disposition home or self-care (01) ==
LOC: DI.S 08:00
PROVIDERS: ATTEND Emergency Medicine
DX: R10.84 Generalized abdominal pain (principal)

== ENCOUNTER 2023-03-21 11:58 | Emergency (ER) | payer MEDICARE, BC ==
--- NOTE | 2023-03-21 12:32 | ED Physician Documentation ---
PD HPI ABD PAIN - Stated complaint Stated Complaint: BLOCKAGE - Chief complaint Chief Complaint: Abd Pain - History obtained from History obtained from: Patient - History of Present Illness Timing - onset: How many weeks ago (1) Timing - duration: Weeks (1) Timing - details: Gradual onset, Still present, Waxing and waning Quality: Cramping, Aching, Pain. No: Fullness/distended Location: Periumbilical, RLQ Radiation: Lower back Improved by: No: Eating, BM (has not had a BM more than a little bit/and watery loose the past week. Had prep for colonscopy 6 days ago with air contrast CT colonoscopy 5 days ago, and subsequent cramps/pains. Has taken so fteners/laxatives due to not haveing stools, and feeling of some rectal pressure, like needing to have BM.) Worsened by: Eating Associated symptoms: Nausea. No: Fever, Vomiting, Constipation (she feels she needs to ahve BM with rectal fullness, but had cleansed for CT colonoscopy and only small food intake after, so would not be constipated.) Similar symptoms before: Has not had sx before Recently seen: Clinic (went to Walk In clinic this morning and had xray with concern for A/F levels. told could be obstruction. This possible consideration given recent air contrast enema and CT. though not distended nor vocmiting.) Review of Systems Constitutional: denies: Fever, Chills Nose: denies: Rhinorrhea / runny nose, Congestion Throat: denies: Sore throat Respiratory: denies: Cough GI: reports: Abdominal Pain (has been having abd pain for months or more intermittently that led to seeing GI and subsequent having the air contrast CT colonoscopy. (pt and could not tell me whey they went with that instead of traditional colonscopy).), Nausea. denies: Vomiting, Bloody / black stool PD PAST MEDICAL HISTORY - Past Medical History Past Medical History: Yes Cardiovascular: None Respiratory: Asthma, Shortness of breath Endocrine/Autoimmune: None GI: GERD, Other (chronic abd pain lower abd. 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 HEENT: Cataracts, Tonsil/Adenoidectomy, Other - Present Medications Home Medications: Ambulatory Orders Medication Instructions Recorded Confirmed Esomeprazole Magnesium [Nexium] 40 mg PO DAILY 05/05/13 03/21/23 Apixaban [Eliquis] 5 mg ORAL BID 03/21/23 03/21/23 Dicyclomine [Bentyl] 10 mg PO TID PRN #20 cap 03/21/23 dilTIAZem HCL [Diltiazem 24Hr ER] 360 mg PO DAILY 03/21/23 03/21/23 - Allergies Allergies/Adverse Reactions: Allergies Allergy/AdvReac Type Severity Reaction Status Date / Time No Known Drug Allergies Allergy Verified 03/21/23 12:20 - Social History Does the pt smoke?: No Smoking Status: Never smoker Does the pt have substance abuse?: No - Immunizations Immunizations are current?: Yes - POLST Patient has POLST: No PD ED PE NORMAL - Vitals Vital signs reviewed: Yes - General General: Alert and oriented X 3, Well developed/nourished, Other (seems in pain lower abd but more so distressed by the stress of it and being here. Stressed about the idea of getting CT scan and possible obstruction/other concerns. ) - Cardiac Cardiac: RRR, No murmur - Respiratory Respiratory: No respiratory distress, Clear bilaterally - Abdomen Abdomen: Soft, Non distended, Other (tender mid abd and lower, right more than left. No guarding nor percussion tender. ). No: Normal bowel sounds (decreased) - Rectal Rectal: Deferred - Back Back: No CVA TTP - Derm Derm: Normal color, Warm and dry - Extremities Extremities: Normal ROM s pain, No edema, No calf tenderness / cord - Neuro Neuro: Alert and oriented X 3, No motor deficit, Normal speech - Psych Psych: No: Normal affect (very anxious and tearful due to being stressed about current symptoms. ) Results - Vitals Vitals: Oxygen O2 Source Room air - Labs Labs: Laboratory Tests 03/21/23 03/21/23 03/21/23 12:55 12:55 12:55 WBC 8.7 RBC 4.94 Hgb 14.7 Hct 43.9 MCV 88.9 MCH 29.8 MCHC 33.5 RDW 13.4 Plt Count 348 MPV 10.8 Neut # (Auto) 4.4 Lymph # (Auto) 3.7 H [place] # (Auto) 0.5 Eos # (Auto) 0.1 Baso # (Auto) 0.1 Absolute Nucleated RBC 0.00 Nucleated RBC % 0.0 Sodium 140 Potassium 4.1 Chloride 107 Carbon Dioxide 23 Anion Gap 10.0 BUN 15 Creatinine 1.1 Estimated GFR (MDRD) 48 L Glucose 104 Calcium 9.6 Magnesium 1.8 Total Bilirubin 0.7 AST 20 ALT 12 Alkaline Phosphatase 80 B-Natriuretic Peptide Total Protein 6.4 Albumin 3.9 Globulin 2.5 Albumin/Globulin Ratio 1.6 Lipase 13 03/21/23 12:55 WBC RBC Hgb Hct MCV MCH MCHC RDW Plt Count MPV Neut # (Auto) Lymph # (Auto) [place] # (Auto) Eos # (Auto) Baso # (Auto) Absolute Nucleated RBC Nucleated RBC % Sodium Potassium Chloride Carbon Dioxide Anion Gap BUN Creatinine Estimated GFR (MDRD) Glucose Calcium Magnesium Total Bilirubin AST ALT Alkaline Phosphatase B-Natriuretic Peptide 522 H Total Protein Albumin Globulin Albumin/Globulin Ratio Lipase - Rads (name of study) abd/pelvic CT Relevant Findings:: Prelim report reviewed (calcific cholelithiasis. Mild CBD and pancreatic duct dilation (8 mm CBD, nl up to 6). correlate clinically. Normal lower abd area. ), EMP independent interpretation of test (I would say there is minimal stool through the colon. Mild colon wall thickening in lower colon/sigmoid, that might be igivng the feeling of needing BM).) PD Medical Decision Making - ED course Complexity details: reviewed old records, reviewed results (CT showing no abstruction nor perforation, No acute process lower abd. comments of CBD and pancreatiic duct minimal dilated does not correlate clinically without upper abd pain nor tenderness, and normal LFTs/lipase/alk phos. ), considered differential (recent air contrast CT colonoscopy, so no instrumentation per se. No biopsy. Still could consider colitis inflammatory, twisting/obstruction, less likely perforation from the enema/air contrast. Consider diverticulitis, appendicitis. Not tender upper abd. ), d/w patient, d/w family (spouse) ED course: presume some irritable bowel secondary to the procedure and augmented amount over her baseline abd pains that has led up to see GI speclailist and getting the study earlier this week. No acute process noted. Pt very anxious in ER and given some meds to help with that for symptoms and to get sCT. Improved at time of discharge when now knowing no severe cause to the symptoms. Departure - Departure Disposition: 01 Home, Self Care Clinical Impression: Lower abdominal pain Condition: Stable Record reviewed to determine appropriate education?: Yes Instructions: ED Abdominal Pain Female Non-Specific Abdominal Pain Follow-Up: Barbara Mckinley MD [Primary Care Provider] - Prescriptions: Dicyclomine [Bentyl] 10 mg PO TID PRN #20 cap PRN Reason: Abdominal Pain Comments: Your CT scan does not show any obstructions. The comment in the CT reading is a mildly dilated common bile duct and pancreatic duct but clinically this does not correlate with your area of pain in your blood test show no elevation of the liver nor pancreatic enzymes. I think this was just slightly larger than normal in appearance but not part of a problem. Otherwise no signs of obstruction or perforations or free fluid. There is actually fairly minimal amounts of stool and in particular down in the lower intestine and sigmoid/rectal area, some fluid in the colon and perhaps some very slight wall thickening consistent with some irritation. I would discontinue any use of laxatives or stool softeners as that does not appear to be the issue. I would go with a little bit of bland food and some fiber type supplements over the next week or 2. Some anti-inflammatory such as ibuprofen or naproxen may be helpful and add Tylenol every 4-6 hours if needed for pain. You are likely having some element of spasming of the intestine (irritable bowel) perhaps preceding the procedure but certainly augmented by the recent air-contrast CT. You can try to help that with antispasmodic medicine called dicyclomine/Bentyl. I wrote a prescription for some of those. We did send you home with a few pain pills for tonight to try to help with symptoms if you need over the next day or so. Stay well-hydrated. Continue other usual medicines. I sent your prescription to your preferred pharmacy. Forms: PCP List Discharge Date/Time: 03/21/23 18:16
[2023-03-21] MEDS ORDERED: KETOROLAC 15 MG/ML VIAL IVP STA (13:19)
[2023-03-21] MEDS ORDERED: SODIUM CHLORIDE 0.9% 1,000 ML IV STA (13:19)
[2023-03-21] MEDS ORDERED: HYDROmorphone 0.5 MG/0.5 ML SYRINGE IVP STA (13:20)
[2023-03-21 13:27] LABS: BASOPHILS # (AUTO) 0.1 10^3/uL (0.0-0.1); BASOPHILS % (AUTO) 0.8 %; EOSINOPHILS # (AUTO) 0.1 10^3/uL (0.0-0.7); EOSINOPHILS % (AUTO) 0.8 %; HCT - HEMATOCRIT 43.9 % (37.0-47.0); HGB - HEMOGLOBIN 14.7 g/dL (12.0-16.0); LYMPHOCYTES # (AUTO) 3.7 10^3/uL (1.5-3.5); LYMPHOCYTES % (AUTO) 42.2 %; MEAN CORPUSCULAR HEMOGLOBIN 29.8 pg (27.0-31.0); MEAN CORPUSCULAR HGB CONC 33.5 g/dL (32.0-36.0); MEAN CORPUSCULAR VOLUME 88.9 fL (81.0-99.0); MEAN PLATELET VOLUME 10.8 fL (7.9-10.8); MONOCYTES # (AUTO) 0.5 10^3/uL (0.0-1.0); MONOCYTES % (AUTO) 5.6 %; NEUTROPHILS # (AUTO) 4.4 10^3/uL (1.5-6.6); NEUTROPHILS % (AUTO) 50.4 %; PLT - PLATELET COUNT 348 10^3/uL (130-450); RED BLOOD COUNT 4.94 10^6/uL (4.20-5.40); RED CELL DISTRIBUTION WIDTH 13.4 % (12.0-15.0); WHITE BLOOD COUNT 8.7 x10^3/uL (4.8-10.8)
[2023-03-21] MEDS ORDERED: diltiaZEM INJ 5 MG/ML VIAL IVP STA (13:27)
[2023-03-21 13:42] LABS: ALBUMIN 3.9 g/dL (3.2-5.5)
[2023-03-21 13:44] LABS: ALBUMIN/GLOBULIN RATIO 1.6 (1.0-2.2); BILIRUBIN,TOTAL 0.7 mg/dL (0.2-1.0); CALCIUM 9.6 mg/dL (8.5-10.3); CREATININE 1.1 mg/dL (0.6-1.3); POTASSIUM 4.1 mmol/L (3.5-4.5); TOTAL PROTEIN 6.4 g/dL (6.4-8.9)
[2023-03-21] MEDS ORDERED: LORazepam 2 MG/ML VIAL IVP STA (13:59)
--- NOTE | 2023-03-21 16:45 | CT Report ---
PROCEDURE: ABDOMEN/PELVIS W INDICATIONS: lower abd pain CONTRAST:100ml omni 300 TECHNIQUE: After the administration of IV contrast, 5 mm thick sections acquired from the diaphragms to the symp hysis. 5 mm thick coronal and sagittal reformats were acquired. For radiation dose reduction, the f ollowing was used: automated exposure control, adjustment of mA and/or kV according to patient size. COMPARISON: July 08, 2022 FINDINGS: Image quality: Excellent. Lung bases and heart: Unremarkable. Liver: Hepatic steatosis. Gallbladder and biliary tree: Calcific cholelithiasis or evidence of acute cholecystitis., Glenoid du ct measures 8 mm. Spleen: No splenomegaly. Pancreas: Mild pancreatic duct dilation through the head and proximal body. Adrenals: No adrenal nodule. Kidneys and ureters: No hydronephrosis. No renal cystic lesion which requires follow up. No solid mas s. Bowel and peritoneum: No bowel distension. No pathologic free fluid. Diverticulosis without evidence of diverticulitis. Large hiatal hernia. Lymph nodes: No central or retroperitoneal adenopathy. Vessels: No infrarenal aortic aneurysm. PELVIS Reproductive organs: Surgically absent. Bladder: No abnormal wall thickening, accounting for underdistension. Pelvic lymph nodes: No pelvic adenopathy by size criteria. Bones: No aggressive osseous abnormality. Other: No significant ventral or inguinal hernia. IMPRESSION: Mild pancreatic ductal dilation of unclear etiology. Consider MRCP versus ERCP. Common biliary duct measures 8 mm in diameter. Calcific cholelithiasis. Hiatal hernia. Hepatic steatosis. Reviewed by: Neno Parra MD on 03/21/2023 3:44 PM [place] Approved by: Neno Parra MD on 03/21/2023 3:44 PM [place] Station ID: [id number]
[2023-03-21] MEDS ORDERED: iohexoL-300 100 ML VIAL IVP ONE (16:55)
[2023-03-21 17:20] VITALS: O2SAT 98
[2023-03-21] MEDS ORDERED: HYDROcod/ACET 5/325 Prepack 4 PO STA (17:55)
[2023-03-21] MEDS ORDERED: DICYCLOMINE 10 MG CAPSULE PO STA (17:55)
[2023-03-21 18:20] VITALS: BP 96/60
== END 2023-03-21 18:16 | disposition home or self-care (01) ==
LOC: ED 11:58
DX: R10.33 Periumbilical pain (principal); R10.31 Right lower quadrant pain; Z79.01 Long term (current) use of anticoagulants; Z79.899 Other long term (current) drug therapy
CPT/HCPCS: 36415; 74177; 80053; 83690; 83735; 83880; 85025; 93005; 96374; 96375; 99284; 99285; A9270; J1170; J2060; Q9967

== ENCOUNTER 2023-03-30 07:38 | Emergency (ER) | payer MEDICARE, BC ==
[2023-03-30] MEDS ORDERED: MORPHINE 2 MG/ML CARPUJECT IVP STA (08:11)
[2023-03-30] MEDS ORDERED: ONDANSETRON 4 MG/2 ML VIAL IVP STA (08:11)
[2023-03-30] MEDS ORDERED: SODIUM CHLORIDE 0.9% 1,000 ML IV STA (08:11)
--- NOTE | 2023-03-30 08:17 | ED Physician Documentation ---
History of Present Illness - Stated complaint Stated Complaint: SYNCOPE - Chief complaint Chief Complaint: General - History obtained from History obtained from: Patient, Other (Outpatient GI notes) - Additonal information Additional information: Patient is a 77-year-old female with a history of atrial fibrillation on Eliquis, prior small bowel obstructions presenting for evaluation of feeling like she has to have a bowel movement but nothing is coming out as well as lower abdominal pain. Patient states that she has been having lower abdominal pain since having a CT colonography on March 17. She was seen here a few days after that procedure with an unremarkable work-up including CT scan which did not show evidence of a bowel obstruction. She reports this morning she was laying in bed and feeling like she had to poop and was able to poop once. While she was back laying in bed again she again had the urge and became very concerned that she was having symptoms similar to her prior bowel obstruction. She reports high anxiety and per her started hyperventilating and then he reports witnessing several episodes where she appeared to pass out briefly for a few seconds and then would come back around. This was all in the setting where she was hyperventilating and Was notably very anxious. Patient denies having chest pain or shortness of air. She denies nausea or vomiting. Her appetite has been unchanged. She wants to be checked for urine infection although she denies dysuria or frequency. She denies blood in her stools. Per her spouse there was no observed seizure-like activity.She is not taking anything for anxiety.When I talked to patient about her symptoms she becomes visibly anxious and states that she is again very worried that she has another bowel obstruction and remembers that that was a very serious and that she almost and this makes her very tearful. March 17 CT colonography. Clinical indication was a failed colonoscopy. IMPRESSION: 1. No colonic polyp or suspicious mass is identified within the ascending colon through transverse colon, with note that sessile polyps are not well identified by CT. There is inadequate visualization of the descending colon through rectum. Continued colorectal cancer screening is recommended. 2. Moderate hiatal hernia with multiple sub-6 mm nodular opacities in the dependent portions of the right middle and right lower lobe, likely infectious/inflammatory in etiology. 3. Cholelithiasis. Review of Systems Constitutional: denies: Fever Cardiac: denies: Chest pain / pressure Respiratory: denies: Dyspnea GI: reports: Abdominal Pain. denies: Nausea, Vomiting, Diarrhea, Bloody / black stool : denies: Dysuria Neurologic: denies: Headache PD PAST MEDICAL HISTORY - Past Medical History Past Medical History: Yes Cardiovascular: None Respiratory: Asthma, Shortness of breath Neuro: None Endocrine/Autoimmune: None GI: GERD, Other : None HEENT: Chronic hearing loss, Dental implants Psych: Anxiety Musculoskeletal: Osteoarthritis, Chronic back pain Derm: None - Past Surgical History Past Surgical History: Yes General: Appendectomy, Bowel surgery Ortho: Knee replacement, Spine surgery /[employer]: Hysterectomy HEENT: Cataracts, Tonsil/Adenoidectomy, Other - Present Medications Home Medications: Ambulatory Orders Medication Instructions Recorded Confirmed Esomeprazole Magnesium [Nexium] 40 mg PO DAILY 05/05/13 03/30/23 Apixaban [Eliquis] 5 mg ORAL BID 03/21/23 03/30/23 Dicyclomine [Bentyl] 10 mg PO TID PRN #20 cap 03/21/23 03/30/23 dilTIAZem HCL [Diltiazem 24Hr ER] 360 mg PO DAILY 03/21/23 03/30/23 Cholecalciferol [Vitamin D3] 25 mcg PO DAILY 03/30/23 03/30/23 Cyanocobalamin (Vitamin B-12) 5,000 mcg PO DAILY 03/30/23 03/30/23 [Vitamin B12] LORazepam [Ativan] 0.5 - 1 mg PO TID PRN #10 tablet 03/30/23 - Allergies Allergies/Adverse Reactions: Allergies Allergy/AdvReac Type Severity Reaction Status Date / Time No Known Drug Allergies Allergy Verified 03/21/23 12:20 - Social History Does the pt smoke?: No Smoking Status: Never smoker Does the pt have substance abuse?: No - Immunizations Immunizations are current?: Yes - POLST Patient has POLST: No PD ED PE NORMAL - General General: Alert and oriented X 3, No acute distress, Well developed/nourished - HEENT HEENT: Atraumatic - Neck Neck: Supple, no meningeal sign - Cardiac Cardiac: Other (Irregularly irregular, normal rate) - Respiratory Respiratory: No respiratory distress, Clear bilaterally - Abdomen Abdomen: Normal bowel sounds, Soft, Non distended, Other (Mild lower abdominal tenderness) - Derm Derm: Warm and dry - Extremities Extremities: No edema, No calf tenderness / cord - Neuro Neuro: Alert and oriented X 3, No motor deficit, No sensory deficit, Normal speech - Psych Psych: Other (Very anxious and tearful in answering any questions and often goes back to expressing her worry that she has a bowel blockage Regardless of the question) Results - Vitals Vitals: Vital Signs - 24 hr 03/30/23 03/30/23 03/30/23 07:47 09:50 11:33 Temperature 36 C L 36.6 C Heart Rate 97 92 79 Respiratory 18 17 16 Rate Blood Pressure 107/66 115/72 122/85 H O2 Saturation 100 100 98 03/30/23 13:00 Temperature 36.6 C Heart Rate 80 Respiratory 16 Rate Blood Pressure 124/86 H O2 Saturation 100 Oxygen O2 Source Room air - EKG (time done) 0813 EKG releavant findings:: EKG personally interpreted by author of this note. Relevant findings are: Rate 100, atrial fibrillation, no STEMI, PVCs, - Labs Labs: Laboratory Tests 03/30/23 03/30/23 03/30/23 08:35 09:34 12:45 WBC 8.0 RBC 5.02 Hgb 15.0 Hct 44.9 MCV 89.4 MCH 29.9 MCHC 33.4 RDW 14.0 Plt Count 336 MPV 9.7 Neut # (Auto) 4.5 Lymph # (Auto) 2.8 [place] # (Auto) 0.5 Eos # (Auto) 0.1 Baso # (Auto) 0.1 Absolute Nucleated RBC 0.00 Nucleated RBC % 0.0 Sodium 143 Potassium 2.7 L Chloride 106 Carbon Dioxide 27 Anion Gap 10.0 BUN 15 Creatinine 1.0 Estimated GFR (MDRD) 54 L Glucose 95 Calcium 9.2 Total Bilirubin 1.0 AST 16 ALT 11 Alkaline Phosphatase 67 Total Protein 6.0 L Albumin 3.8 Globulin 2.2 Albumin/Globulin Ratio 1.7 Lipase 32 Urine Color LIGHT YELLOW Urine Clarity CLEAR Urine pH 7.0 Ur Specific [place] <=1.005 Urine Protein NEGATIVE Urine Glucose (UA) NEGATIVE Urine Ketones NEGATIVE Urine Occult Blood TRACE-INTA Urine Nitrite NEGATIVE Urine Bilirubin NEGATIVE Urine Urobilinogen 0.2 (NORMAL) Ur Leukocyte Esterase NEGATIVE Ur Microscopic Review NOT INDICATED Urine Culture Comments NOT INDICATED PD Medical Decision Making - ED course Complexity details: reviewed results, re-evaluated patient, d/w patient, d/w family ED course: Patient is a 77-year-old female presenting for evaluation of Syncopal episodes in the setting of hyperventilating while wearing that she could be having symptoms of another small bowel obstruction. Her EKG demonstrates atrial fibrillation. She has not had no further episodes of syncope here. She does appear quite anxious. No chest pain or shortness of air. Has mild lower abdominal tenderness. CBC, chemistries, urinalysis and CT abdomen and pelvis were obtained and reviewed. There is no signs of a bowel blockage. I did review findings of the pancreatic duct dilatation which was seen on prior CTs and recommended outpatient follow-up if warranted by PCP. She does have mild hypokalemia which was replaced orally. No signs of UTI. She is feeling better here after IV morphine as well as Ativan. I do think her syncopal episodes Were related to hyperventilation. I do not think she needs admission at this time and recommend close outpatient follow-up. Departure - Departure Disposition: 01 Home, Self Care Clinical Impression: Lower abdominal pain, Hypokalemia, Syncopal episodes, Anxiety hyperventilation Condition: Stable Instructions: ED Abdominal Pain Female Non-Specific Abdominal Pain, ED Potassium Deficiency Follow-Up: Barbara Mckinley MD [Primary Care Provider] - Prescriptions: LORazepam [Ativan] 0.5 - 1 mg PO TID PRN #10 tablet PRN Reason: Anxiety Comments: Your labs today are reassuring other than you have a slightly low potassium. Your urine does not show signs of an infection.Your CT scan also does not show any signs of a bowel blockage. Your pancreas duct is slightly dilated which has been in the past. I would recommend close follow-up with your primary care to discuss whether you should have further testing for this. At this time I do not think that is the source of your symptoms. You do have significant anxiety. You do need close follow-up with your primary care provider to discuss today's events as well as managing your anxiety. I have sent a prescription for a benzodiazepine to [facility] in [place]. Please use this only as directed and use caution with it as it can be sedating. Return to the emergency department for any worsening symptoms. CT REPORT: IMPRESSION: 1. No acute pathology in the abdomen or pelvis. Nonobstructive bowel. 2. Compared to CT dated March 21, 2023, similar appearance of mild pancreatic head and proximal body ductal dilatation measuring up to 5 mm. Consider MRCP versus ERCP for further evaluation. 3. Cholelithiasis without acute cholecystitis. CBD is borderline dilated measuring 8 mm with no choledocholithiasis. 4. Moderate hiatal hernia. Forms: PCP List Discharge Date/Time: 03/30/23 13:50
--- NOTE | 2023-03-30 08:30 | XRAY Report ---
PROCEDURE: Chest 1 View X-Ray INDICATIONS: syncope TECHNIQUE: One view of the chest was acquired. COMPARISON: None. FINDINGS: Surgical changes and devices: None. Lungs and pleura: No pleural effusions or pneumothorax. Lungs are clear. Mediastinum: Mediastinal contours appear normal. Heart size is normal. Bones and chest wall: No suspicious bony lesions. Overlying soft tissues appear unremarkable. IMPRESSION: No acute cardiopulmonary process. Reviewed by: Simba Burt MD on 03/30/2023 8:28 AM [facility] Approved by: Simba Burt MD on 03/30/2023 8:28 AM [facility] Station ID: [id number]
[2023-03-30 08:41] LABS: BASOPHILS # (AUTO) 0.1 10^3/uL (0.0-0.1); BASOPHILS % (AUTO) 0.9 %; EOSINOPHILS # (AUTO) 0.1 10^3/uL (0.0-0.7); EOSINOPHILS % (AUTO) 1.3 %; HCT - HEMATOCRIT 44.9 % (37.0-47.0); LYMPHOCYTES # (AUTO) 2.8 10^3/uL (1.5-3.5); LYMPHOCYTES % (AUTO) 34.8 %; MEAN CORPUSCULAR HEMOGLOBIN 29.9 pg (27.0-31.0); MEAN CORPUSCULAR HGB CONC 33.4 g/dL (32.0-36.0); MEAN CORPUSCULAR VOLUME 89.4 fL (81.0-99.0); MEAN PLATELET VOLUME 9.7 fL (7.9-10.8); MONOCYTES # (AUTO) 0.5 10^3/uL (0.0-1.0); MONOCYTES % (AUTO) 6.4 %; NEUTROPHILS # (AUTO) 4.5 10^3/uL (1.5-6.6); NEUTROPHILS % (AUTO) 56.3 %; PLT - PLATELET COUNT 336 10^3/uL (130-450); RED BLOOD COUNT 5.02 10^6/uL (4.20-5.40)
[2023-03-30] MEDS ORDERED: LORazepam 2 MG/ML VIAL IVP STA (09:38)
[2023-03-30 10:00] LABS: ALBUMIN 3.8 g/dL (3.2-5.5); ALBUMIN/GLOBULIN RATIO 1.7 (1.0-2.2); CALCIUM 9.2 mg/dL (8.5-10.3); POTASSIUM 2.7 mmol/L (3.5-4.5)
--- NOTE | 2023-03-30 11:45 | CT Report ---
PROCEDURE: ABDOMEN/PELVIS W INDICATIONS: lower abd pain/history of SBO CONTRAST: Omni 300 100ml TECHNIQUE: After the administration of intravenous contrast, 5 mm thick sections acquired from the diaphragms to the symphysis. 5 mm thick coronal and sagittal reformats were acquired. For radiation dose reducti on, the following was used: automated exposure control, adjustment of mA and/or kV according to gina ent size. COMPARISON: CT abdomen and pelvis on March 21, 2023 FINDINGS: Image quality: Excellent. Lung bases and heart: No suspicious pulmonary nodule or consolidation. No basilar effusion. Stable mo derate hiatal hernia. Visualized heart base is unremarkable. Liver: Noncirrhotic morphology. Diffuse hypoattenuation of the liver which may be seen in the setting of steatosis. Gallbladder and biliary tree: Cholelithiasis with no wall thickness or pericholecystic fluid to sugge st acute cholecystitis. No intra or extrahepatic biliary ductal dilatation. CBD is borderline dilated measuring 8 mm, as before (06/28) with no choledocholithiasis. Spleen: No splenomegaly. Pancreas: Stable mild pancreatic ductal dilatation in the head and proximal body measuring up to 5 mm (06/26, 09/21, ). Normal parenchymal enhancement with no inflammation. No CT evidence of a obstructi ng lesion. Adrenals: No adrenal nodule. Kidneys and ureters: No hydronephrosis. No renal cystic lesion which requires follow up. No solid mas s. No nephrolithiasis. Bowel and peritoneum: Stomach is decompressed, limiting evaluation. Small and large bowel is normal i n caliber, without obstruction. No pneumatosis, pneumoperitoneum or portal venous gas. Lymph nodes: No central or retroperitoneal adenopathy. Scattered surgical clips suggestive of lymph n ode resection. Vessels: No infrarenal aortic aneurysm. PELVIS Reproductive organs: Hysterectomy. Bladder: No abnormal wall thickening, accounting for underdistension. Pelvic lymph nodes: No pelvic adenopathy by size criteria. Bones: No acute fracture. No aggressive appearing lytic or blastic osseous lesion. Levoconvex curvatu re of the lumbar spine with apex at L2-L3. Moderate multilevel degenerative changes of the spine. Other: No significant ventral or inguinal hernia. IMPRESSION: 1. No acute pathology in the abdomen or pelvis. Nonobstructive bowel. 2. Compared to CT dated March 21, 2023, similar appearance of mild pancreatic head and proximal romeo dy ductal dilatation measuring up to 5 mm. Consider MRCP versus ERCP for further evaluation. 3. Cholelithiasis without acute cholecystitis. CBD is borderline dilated measuring 8 mm with no omar docholithiasis. 4. Moderate hiatal hernia. Reviewed by: Jean-Claude Moulton MD on 03/30/2023 11:43 AM PST Approved by: Jean-Claude Moulton MD on 03/30/2023 11:43 AM PST Station ID: [id number]
[2023-03-30] MEDS ORDERED: POTASSIUM CHLORIDE 20 MEQ TABLET PO ONE (11:47)
[2023-03-30 12:55] LABS: BILIRUBIN,URINE NEGATIVE (NEGATIVE); GLUCOSE, URINE (UA) NEGATIVE (NEGATIVE); KETONES,URINE (UA) NEGATIVE (NEGATIVE); LEUKOCYTE ESTERASE, URINE NEGATIVE (NEGATIVE); NITRITE,URINE NEGATIVE (NEGATIVE); OCCULT BLOOD,URINE TRACE-INTA (NEGATIVE); PROTEIN,URINE NEGATIVE (NEGATIVE); UROBILINOGEN,URINE 0.2 (NORMAL) E.U./dL (NORMAL)
[2023-03-30 13:02] LABS: CLARITY,URINE CLEAR (CLEAR)
[2023-03-30 13:42] VITALS: BP 124/86; O2SAT 100
[2023-03-30] MEDS ORDERED: iohexoL-300 100 ML VIAL IVP ONE (13:50)
== END 2023-03-30 13:50 | disposition home or self-care (01) ==
LOC: ED 07:38
DX: R55 Syncope and collapse (principal); R06.4 Hyperventilation; E87.6 Hypokalemia; I48.91 Unspecified atrial fibrillation; Z79.01 Long term (current) use of anticoagulants
CPT/HCPCS: 36415; 71045; 74177; 80053; 81003; 83690; 85025; 93005; 96361; 96374; 96375; 99284; A9270; J2060; Q9967; 81001; 87086